=== PATIENT | female | born 1935 | race Caucasian/White ===

== ENCOUNTER 2023-01-07 20:27 | Inpatient (IN) | payer OTHER, MEDICAID ==
[~2023-01-07] VITALS: Ht 160 cm; Wt 59.0 kg
[2023-01-07 20:27] VITALS: BP 134/80; PULSE 68; RESP 17; TEMP 97.5; O2SAT 96
[2023-01-07 20:46] VITALS: O2SAT 99
[2023-01-07 21:42] LABS: BASOPHILS # (AUTO) 0.1 K/uL (0.00-0.22); EOSINOPHILS # (AUTO) 0.3 K/uL (0-0.4); EOSINOPHILS % (AUTO) 5.1 % (0.0-4.0); HEMATOCRIT 36.9 % (36-48); HEMOGLOBIN 12.3 g/dL (12.0-16.0); LYMPHOCYTES % (AUTO) 32.8 % (20.5-51.1); MEAN CORPUSCULAR HEMOGLOBIN 31 pg (27-31); MEAN CORPUSCULAR HGB CONC 34 g/dL (33-37); MEAN CORPUSCULAR VOLUME 93.2 fL (80-94); MONOCYTES # (AUTO) 0.9 K/uL (0.8-1.0); MONOCYTES % (AUTO) 14.2 % (1.7-9.3); NEUTROPHILS # (AUTO) 2.9 K/uL (1.8-7.7); NEUTROPHILS % (AUTO) 46.9 % (42.2-75.2); PLATELET COUNT (AUTO) 307 K/uL (140-450); RED BLOOD CELL COUNT(AUTO) 3.95 MIL/uL (4.20-5.40); RED CELL DISTRIBUTION WIDTH 14.8 % (11.6-13.7); WHITE BLOOD COUNT (AUTO) 6.2 K/uL (4.8-10.8)
[2023-01-07 21:58] LABS: ALANINE AMINOTRANSFERASE 7 U/L (12-78); ALBUMIN 2.7 g/dL (3.4-5.0); ALKALINE PHOSPHATASE 108 U/L (50-136); ANION GAP 9.6 (8-16); ASPARTATE AMINOTRANSFERASE 21 U/L (15-37); CARBON DIOXIDE 27.8 mmol/L (21-32); CHLORIDE 101 mmol/L (98-107); CREATININE 0.7 mg/dL (0.6-1.3); GLUCOSE 114 mg/dL (74-106); POTASSIUM 4.4 mmol/L (3.5-5.1); SODIUM SERUM 134 mmol/L (136-145); TOTAL BILIRUBIN 0.5 mg/dL (0.0-1.0); UREA NITROGEN, BLOOD 21 mg/dL (7-18)
[2023-01-07 22:03] LABS: LIPASE 39 U/L (16-77)
[2023-01-07 22:04] LABS: LACTIC ACID 0.8 mmol/L (0.4-2.0)
[2023-01-07] MEDS ORDERED: ASPIRIN 325 MG TAB PO ONE (22:50)
[2023-01-07 22:59] LABS: APPEARANCE,URINE CLEAR (CLEAR); BILIRUBIN,URINE NEGATIVE (NEGATIVE); BLOOD, URINE TRACE-I (NEGATIVE); COLOR,URINE YELLOW (YELLOW); LEUKOCYTE ESTERASE ,URINE 2+ (NEGATIVE); NITRITE, URINE NEGATIVE (NEGATIVE); PROTEIN,URINE NEGATIVE (NEGATIVE); UGLUCOSE NEGATIVE (NEGATIVE); UROBILINOGEN,URINE 0.2 EU/dL (0.2 - 1)
[2023-01-07 23:28] LABS: BACTERIA,URINE 1+ /HPF (None Seen); RBC,URINE 0-5 /HPF (0-5); SQUAMOUS EPITHELIAL CELL,UR 0-3 (FEW) /LPF (0-3 (FEW))
[2023-01-07] MEDS ORDERED: cefTRIAXone 1,000 MG VIAL ONE (23:29)
[2023-01-08] VITALS (17 sets, daily range): BP systolic 132–173; BP diastolic 60–99; PULSE 63–117; RESP 14–18; TEMP 96.9–97.9; O2SAT 90–100
[2023-01-08] MEDS: NACL 0.9% 1,000 ML IV SCH ×2 (01:10→19:50)
[2023-01-08] MEDS: hydrALAZINE 20 MG/ML VIAL IVP PRN (12:04)
[2023-01-08] MEDS: amLODIPine 5 MG TAB PO SCH (12:05)
[2023-01-09] VITALS (7 sets, daily range): BP systolic 112–153; BP diastolic 52–80; PULSE 68–112; RESP 18; TEMP 97–98.7; O2SAT 92–98
[2023-01-09 07:24] LABS: BASOPHILS # (AUTO) 0.1 K/uL (0.00-0.22); EOSINOPHILS # (AUTO) 0.2 K/uL (0-0.4); EOSINOPHILS % (AUTO) 2.7 % (0.0-4.0); HEMATOCRIT 37.1 % (36-48); HEMOGLOBIN 12.5 g/dL (12.0-16.0); LYMPHOCYTES # (AUTO) 1.8 K/uL (2.5-16.5); LYMPHOCYTES % (AUTO) 27.4 % (20.5-51.1); MEAN CORPUSCULAR HEMOGLOBIN 31 pg (27-31); MEAN CORPUSCULAR HGB CONC 34 g/dL (33-37); MEAN CORPUSCULAR VOLUME 93.3 fL (80-94); MONOCYTES # (AUTO) 0.8 K/uL (0.8-1.0); MONOCYTES % (AUTO) 11.9 % (1.7-9.3); NEUTROPHILS # (AUTO) 3.7 K/uL (1.8-7.7); PLATELET COUNT (AUTO) 306 K/uL (140-450); RED BLOOD CELL COUNT(AUTO) 3.98 MIL/uL (4.20-5.40); RED CELL DISTRIBUTION WIDTH 14.5 % (11.6-13.7); WHITE BLOOD COUNT (AUTO) 6.5 K/uL (4.8-10.8)
[2023-01-09 07:34] LABS: ALANINE AMINOTRANSFERASE 13 U/L (12-78); ALBUMIN 2.7 g/dL (3.4-5.0); ALKALINE PHOSPHATASE 103 U/L (50-136); ANION GAP 12.4 (8-16); ASPARTATE AMINOTRANSFERASE 18 U/L (15-37); CALCIUM 9.1 mg/dL (8.5-10.1); CARBON DIOXIDE 26.6 mmol/L (21-32); CHLORIDE 103 mmol/L (98-107); CREATININE 0.6 mg/dL (0.6-1.3); GLUCOSE 95 mg/dL (74-106); SODIUM SERUM 138 mmol/L (136-145); TOTAL BILIRUBIN 0.6 mg/dL (0.0-1.0); TOTAL PROTEIN, SERUM 7.7 g/dL (6.4-8.2); UREA NITROGEN, BLOOD 14 mg/dL (7-18)
[2023-01-09] MEDS: amLODIPine 5 MG TAB PO SCH (09:08)
[2023-01-09] MEDS ORDERED: ACETAMINOPHEN 650 MG/20.3 ML UDC PO PRN (14:45)
[2023-01-09] MEDS ORDERED: KETOROLAC 30 MG/ML VIAL IVP PRN (14:50)
[2023-01-09] MEDS: NACL 0.9% 1,000 ML IV SCH (17:28)
[2023-01-10] VITALS: BP 146/73; PULSE 109; PULSE 87; RESP 18; TEMP 98.5; O2SAT 97
[2023-01-10 04:00] VITALS: BP 129/60; PULSE 68; PULSE 96; RESP 18; TEMP 97.8; O2SAT 100
[2023-01-10 05:43] LABS: BASOPHILS # (AUTO) 0.1 K/uL (0.00-0.22); BASOPHILS % (AUTO) 0.6 % (0.0-2.0); EOSINOPHILS # (AUTO) 0.1 K/uL (0-0.4); EOSINOPHILS % (AUTO) 1.3 % (0.0-4.0); HEMATOCRIT 34.1 % (36-48); HEMOGLOBIN 11.3 g/dL (12.0-16.0); LYMPHOCYTES # (AUTO) 2.1 K/uL (2.5-16.5); LYMPHOCYTES % (AUTO) 22.8 % (20.5-51.1); MEAN CORPUSCULAR HEMOGLOBIN 31 pg (27-31); MEAN CORPUSCULAR HGB CONC 33 g/dL (33-37); MEAN CORPUSCULAR VOLUME 93.8 fL (80-94); MONOCYTES % (AUTO) 10.7 % (1.7-9.3); NEUTROPHILS # (AUTO) 6.1 K/uL (1.8-7.7); NEUTROPHILS % (AUTO) 64.6 % (42.2-75.2); PLATELET COUNT (AUTO) 288 K/uL (140-450); RED BLOOD CELL COUNT(AUTO) 3.63 MIL/uL (4.20-5.40); RED CELL DISTRIBUTION WIDTH 14.4 % (11.6-13.7); WHITE BLOOD COUNT (AUTO) 9.4 K/uL (4.8-10.8)
[2023-01-10 07:12] LABS: ALANINE AMINOTRANSFERASE 13 U/L (12-78); ALBUMIN 2.6 g/dL (3.4-5.0); ALKALINE PHOSPHATASE 93 U/L (50-136); ANION GAP 15.1 (8-16); ASPARTATE AMINOTRANSFERASE 19 U/L (15-37); CALCIUM 9.1 mg/dL (8.5-10.1); CARBON DIOXIDE 23.5 mmol/L (21-32); CHLORIDE 102 mmol/L (98-107); CREATININE 0.6 mg/dL (0.6-1.3); GLUCOSE 96 mg/dL (74-106); POTASSIUM 3.6 mmol/L (3.5-5.1); SODIUM SERUM 137 mmol/L (136-145); TOTAL BILIRUBIN 0.6 mg/dL (0.0-1.0); TOTAL PROTEIN, SERUM 7.5 g/dL (6.4-8.2); UREA NITROGEN, BLOOD 12 mg/dL (7-18)
[2023-01-10 08:00] VITALS: BP 112/61; PULSE 57; PULSE 69; PULSE 80; RESP 18; TEMP 97.4; O2SAT 95; O2SAT 99
[2023-01-10] MEDS: amLODIPine 5 MG TAB PO SCH (09:00)
[2023-01-10 12:00] VITALS: BP 146/55; PULSE 57; PULSE 69; RESP 18; TEMP 97.1; O2SAT 95
[2023-01-10] MEDS: NACL 0.9% 1,000 ML IV SCH (13:19)
[2023-01-10] MEDS: DEXT 5% / NACL 0.9% 1,000 ML IV SCH (14:10)
[2023-01-10 16:00] VITALS: BP 154/75; PULSE 56; PULSE 95; RESP 18; TEMP 98.2; O2SAT 98
[2023-01-10] MEDS ORDERED: CRUSHER, PILL MC ONE (17:18)
[2023-01-10] MEDS: BACLOFEN 10 MG TAB PO SCH (17:21)
[2023-01-10] MEDS: CARBIDOPA/LEVODOPA 25/100 MG 1 TAB PO SCH (17:21)
[2023-01-10 20:00] VITALS: BP 131/64; PULSE 69; RESP 18; TEMP 96.6; O2SAT 98
[2023-01-10] MEDS: ATORVASTATIN 20 MG TAB PO SCH (22:35)
[2023-01-10] MEDS: PROPRANOLOL 20 MG TAB PO SCH (22:35)
[2023-01-10] MEDS: GABAPENTIN 100 MG CAP PO SCH (22:36)
[2023-01-11] VITALS: BP 122/43; PULSE 64; PULSE 65; RESP 18; TEMP 96.9; O2SAT 96
[2023-01-11 04:00] VITALS: BP 160/63; PULSE 66; RESP 18; TEMP 96.4; O2SAT 96
[2023-01-11] MEDS: DEXT 5% / NACL 0.9% 1,000 ML IV SCH ×3 (06:00→21:54)
[2023-01-11 08:00] VITALS: BP 134/54; PULSE 42; PULSE 55; RESP 20; TEMP 97; O2SAT 100
[2023-01-11] MEDS: CARBIDOPA/LEVODOPA 25/100 MG 1 TAB PO SCH ×3 (09:06→17:00)
[2023-01-11] MEDS: BACLOFEN 10 MG TAB PO SCH ×3 (09:09→17:00)
[2023-01-11] MEDS: PROPRANOLOL 20 MG TAB PO SCH (09:09)
[2023-01-11 12:00] VITALS: BP 121/56; PULSE 36; PULSE 97; RESP 20; TEMP 98; O2SAT 100
[2023-01-11 16:00] VITALS: BP 151/56; PULSE 35; PULSE 64; RESP 20; TEMP 98; O2SAT 98
[2023-01-11 20:00] VITALS: BP 153/87; PULSE 66; PULSE 69; RESP 18; TEMP 36.5; O2SAT 97
[2023-01-11] MEDS: ATORVASTATIN 20 MG TAB PO SCH (21:05)
[2023-01-11] MEDS: GABAPENTIN 100 MG CAP PO SCH (21:06)
[2023-01-12] VITALS (10 sets, daily range): BP systolic 140–152; BP diastolic 54–86; PULSE 44–78; RESP 15–20; TEMP 96.6–97.4; O2SAT 95–100
[2023-01-12 06:07] LABS: BASOPHILS % (AUTO) 0.7 % (0.0-2.0); EOSINOPHILS # (AUTO) 0.3 K/uL (0-0.4); EOSINOPHILS % (AUTO) 4.8 % (0.0-4.0); HEMATOCRIT 35.4 % (36-48); HEMOGLOBIN 11.9 g/dL (12.0-16.0); LYMPHOCYTES # (AUTO) 1.9 K/uL (2.5-16.5); LYMPHOCYTES % (AUTO) 27.7 % (20.5-51.1); MEAN CORPUSCULAR HEMOGLOBIN 32 pg (27-31); MEAN CORPUSCULAR HGB CONC 34 g/dL (33-37); MEAN CORPUSCULAR VOLUME 94.1 fL (80-94); MONOCYTES # (AUTO) 0.9 K/uL (0.8-1.0); MONOCYTES % (AUTO) 13.8 % (1.7-9.3); NEUTROPHILS # (AUTO) 3.6 K/uL (1.8-7.7); PLATELET COUNT (AUTO) 267 K/uL (140-450); RED BLOOD CELL COUNT(AUTO) 3.76 MIL/uL (4.20-5.40); RED CELL DISTRIBUTION WIDTH 14.6 % (11.6-13.7); WHITE BLOOD COUNT (AUTO) 6.8 K/uL (4.8-10.8)
[2023-01-12 06:09] LABS: ANION GAP 8.6 (8-16); CALCIUM 8.8 mg/dL (8.5-10.1); CARBON DIOXIDE 28.6 mmol/L (21-32); CHLORIDE 106 mmol/L (98-107); CREATININE 0.5 mg/dL (0.6-1.3); GLUCOSE 128 mg/dL (74-106); POTASSIUM 3.2 mmol/L (3.5-5.1); SODIUM SERUM 140 mmol/L (136-145); UREA NITROGEN, BLOOD 4 mg/dL (7-18)
[2023-01-12] MEDS: CARBIDOPA/LEVODOPA 25/100 MG 1 TAB PO SCH ×3 (08:32→16:36)
[2023-01-12] MEDS: BACLOFEN 10 MG TAB PO SCH ×3 (08:32→16:36)
[2023-01-12] MEDS ORDERED: POTASSIUM CHLORIDE 10 MEQ TABER PO SCH (08:47)
[2023-01-12] MEDS ORDERED: POTASSIUM CHLORIDE 20% 40 MEQ/15 ML UDC PO SCH (09:04)
[2023-01-12] MEDS: DEXT 5% / NACL 0.9% 1,000 ML IV SCH (10:32)
[2023-01-12 17:05] LABS: FREE T4 (FREE THYROXINE) 1.52 ng/dL (0.76-1.46); THYROID STIMULATING HORMONE 2.52 uIU/mL (0.34-3.74)
[2023-01-12] MEDS: ATORVASTATIN 20 MG TAB PO SCH (22:00)
[2023-01-12] MEDS: GABAPENTIN 100 MG CAP PO SCH (22:00)
[2023-01-13] VITALS (8 sets, daily range): BP systolic 106–161; BP diastolic 40–88; PULSE 46–103; RESP 15–18; TEMP 97–97.6; O2SAT 92–100
[2023-01-13] MEDS: DEXT 5% / NACL 0.9% 1,000 ML IV SCH ×2 (01:30→18:30)
[2023-01-13 06:39] LABS: ANION GAP 12.2 (8-16); CALCIUM 8.8 mg/dL (8.5-10.1); CARBON DIOXIDE 24.9 mmol/L (21-32); CHLORIDE 106 mmol/L (98-107); CREATININE 0.5 mg/dL (0.6-1.3); GLUCOSE 125 mg/dL (74-106); POTASSIUM 3.1 mmol/L (3.5-5.1); SODIUM SERUM 140 mmol/L (136-145); UREA NITROGEN, BLOOD 3 mg/dL (7-18)
[2023-01-13] MEDS: CARBIDOPA/LEVODOPA 25/100 MG 1 TAB PO SCH ×3 (08:00→18:37)
[2023-01-13] MEDS: BACLOFEN 10 MG TAB PO SCH ×3 (08:40→18:37)
[2023-01-13] MEDS ORDERED: POTASSIUM CHLORIDE 10 MEQ TABER PO SCH (08:48)
[2023-01-13] MEDS ORDERED: POTASSIUM CHLORIDE 40 MEQ, LIDOCAINE 1% 25 MG in NACL 0.9% 250 ML IV SCH (11:00)
[2023-01-13] MEDS: hydrALAZINE 20 MG/ML VIAL IVP PRN (13:07)
[2023-01-13] MEDS ORDERED: ACETAMINOPHEN 650 MG/20.3 ML UDC NG PRN (18:38)
[2023-01-13] MEDS ORDERED: ATORVASTATIN 20 MG TAB NG SCH (18:39)
[2023-01-13] MEDS ORDERED: CRUSHER, PILL MC ONE (20:54)
[2023-01-13] MEDS: GABAPENTIN 100 MG CAP NG SCH (20:57)
[2023-01-14] VITALS (10 sets, daily range): BP systolic 98–148; BP diastolic 50–78; PULSE 43–131; RESP 16–20; TEMP 97.1–98.5; O2SAT 95–99
[2023-01-14 05:27] LABS: BASOPHILS % (AUTO) 0.8 % (0.0-2.0); EOSINOPHILS # (AUTO) 0.2 K/uL (0-0.4); EOSINOPHILS % (AUTO) 3.8 % (0.0-4.0); HEMATOCRIT 32.8 % (36-48); LYMPHOCYTES # (AUTO) 1.3 K/uL (2.5-16.5); LYMPHOCYTES % (AUTO) 22.3 % (20.5-51.1); MEAN CORPUSCULAR HEMOGLOBIN 32 pg (27-31); MEAN CORPUSCULAR HGB CONC 34 g/dL (33-37); MEAN CORPUSCULAR VOLUME 94.1 fL (80-94); MONOCYTES # (AUTO) 0.9 K/uL (0.8-1.0); MONOCYTES % (AUTO) 14.9 % (1.7-9.3); NEUTROPHILS # (AUTO) 3.4 K/uL (1.8-7.7); NEUTROPHILS % (AUTO) 58.2 % (42.2-75.2); PLATELET COUNT (AUTO) 270 K/uL (140-450); RED BLOOD CELL COUNT(AUTO) 3.49 MIL/uL (4.20-5.40); RED CELL DISTRIBUTION WIDTH 14.7 % (11.6-13.7); WHITE BLOOD COUNT (AUTO) 5.8 K/uL (4.8-10.8)
[2023-01-14] MEDS: DEXT 5% / NACL 0.9% 1,000 ML IV SCH ×2 (05:40→17:57)
[2023-01-14 06:36] LABS: ANION GAP 10.7 (8-16); CALCIUM 8.4 mg/dL (8.5-10.1); CARBON DIOXIDE 25.6 mmol/L (21-32); CHLORIDE 110 mmol/L (98-107); CREATININE 0.6 mg/dL (0.6-1.3); GLUCOSE 125 mg/dL (74-106); POTASSIUM 4.3 mmol/L (3.5-5.1); SODIUM SERUM 142 mmol/L (136-145); UREA NITROGEN, BLOOD 5 mg/dL (7-18)
[2023-01-14] MEDS: BACLOFEN 10 MG TAB NG SCH ×3 (09:55→17:34)
[2023-01-14] MEDS: CARBIDOPA/LEVODOPA 25/100 MG 1 TAB NG SCH ×3 (09:55→17:34)
[2023-01-14] MEDS ORDERED: LORazepam 2 MG/ML VIAL IM/IVP PRN (17:05)
[2023-01-14] MEDS: GABAPENTIN 100 MG CAP NG SCH (21:13)
[2023-01-15] VITALS (7 sets, daily range): BP systolic 145–171; BP diastolic 55–64; PULSE 67–100; RESP 15–19; TEMP 97–98.2; O2SAT 94–97
[2023-01-15] MEDS: DEXT 5% / NACL 0.9% 1,000 ML IV SCH ×2 (06:56→18:07)
[2023-01-15 07:13] LABS: BASOPHILS % (AUTO) 0.6 % (0.0-2.0); EOSINOPHILS # (AUTO) 0.2 K/uL (0-0.4); EOSINOPHILS % (AUTO) 3.7 % (0.0-4.0); HEMATOCRIT 35.7 % (36-48); HEMOGLOBIN 11.7 g/dL (12.0-16.0); LYMPHOCYTES # (AUTO) 1.6 K/uL (2.5-16.5); LYMPHOCYTES % (AUTO) 25.3 % (20.5-51.1); MEAN CORPUSCULAR HEMOGLOBIN 31 pg (27-31); MEAN CORPUSCULAR HGB CONC 33 g/dL (33-37); MONOCYTES # (AUTO) 1.2 K/uL (0.8-1.0); MONOCYTES % (AUTO) 18.8 % (1.7-9.3); NEUTROPHILS # (AUTO) 3.3 K/uL (1.8-7.7); NEUTROPHILS % (AUTO) 51.6 % (42.2-75.2); PLATELET COUNT (AUTO) 249 K/uL (140-450); RED BLOOD CELL COUNT(AUTO) 3.76 MIL/uL (4.20-5.40); WHITE BLOOD COUNT (AUTO) 6.4 K/uL (4.8-10.8)
[2023-01-15 07:21] LABS: ANION GAP 9.7 (8-16); CALCIUM 8.6 mg/dL (8.5-10.1); CARBON DIOXIDE 22.5 mmol/L (21-32); CHLORIDE 109 mmol/L (98-107); CREATININE 0.6 mg/dL (0.6-1.3); GLUCOSE 137 mg/dL (74-106); POTASSIUM 4.2 mmol/L (3.5-5.1); SODIUM SERUM 137 mmol/L (136-145); UREA NITROGEN, BLOOD 8 mg/dL (7-18)
[2023-01-15] MEDS: ECOTRIN 81 MG TABEC PO SCH (09:09)
[2023-01-15] MEDS: CARBIDOPA/LEVODOPA 25/100 MG 1 TAB NG SCH ×3 (09:10→18:07)
[2023-01-15] MEDS: ATORVASTATIN 20 MG TAB PO SCH (09:10)
[2023-01-15] MEDS: BACLOFEN 10 MG TAB NG SCH ×3 (09:10→18:07)
[2023-01-15] MEDS: LOSARTAN 25 MG TAB PO SCH (09:11)
[2023-01-15] MEDS: GABAPENTIN 100 MG CAP NG SCH (20:16)
[2023-01-16] MEDS: DEXT 5% / NACL 0.9% 1,000 ML IV SCH ×2 (06:42→20:10)
[2023-01-16 08:00] VITALS: BP 163/69; PULSE 56; PULSE 86; RESP 18; TEMP 98.2; O2SAT 94; O2SAT 98
[2023-01-16] MEDS: BACLOFEN 10 MG TAB NG SCH ×3 (09:01→17:53)
[2023-01-16] MEDS: CARBIDOPA/LEVODOPA 25/100 MG 1 TAB NG SCH ×3 (09:01→17:53)
[2023-01-16] MEDS: ECOTRIN 81 MG TABEC PO SCH (09:01)
[2023-01-16] MEDS: ATORVASTATIN 20 MG TAB PO SCH (09:01)
[2023-01-16] MEDS: LOSARTAN 25 MG TAB PO SCH (09:01)
[2023-01-16] MEDS: DOCUSATE 100 MG/10 ML UDC NG SCH ×2 (14:23→22:12)
[2023-01-16 16:00] VITALS: BP 153/69; PULSE 80; RESP 18; TEMP 97.3; O2SAT 97
[2023-01-16 20:00] VITALS: BP 154/77; PULSE 75; RESP 16; TEMP 97.6; O2SAT 98
[2023-01-16] MEDS: GABAPENTIN 100 MG CAP NG SCH (22:13)
[2023-01-17 08:00] VITALS: BP 163/56; PULSE 73; RESP 18; TEMP 97.2; O2SAT 98
[2023-01-17] MEDS: ATORVASTATIN 20 MG TAB PO SCH (08:43)
[2023-01-17] MEDS: ECOTRIN 81 MG TABEC PO SCH (08:43)
[2023-01-17] MEDS: LOSARTAN 25 MG TAB PO SCH (08:43)
[2023-01-17] MEDS: DOCUSATE 100 MG/10 ML UDC NG SCH (08:44)
[2023-01-17] MEDS: CARBIDOPA/LEVODOPA 25/100 MG 1 TAB NG SCH ×3 (08:44→18:12)
[2023-01-17] MEDS: BACLOFEN 10 MG TAB NG SCH ×3 (08:44→18:11)
[2023-01-17] MEDS: DEXT 5% / NACL 0.9% 1,000 ML IV SCH (08:49)
[2023-01-17] MEDS ORDERED: ATOR40TA PO (10:45)
[2023-01-17] MEDS ORDERED: losartan (10:46)
[2023-01-17 16:00] VITALS: BP 150/62; PULSE 73; RESP 18; TEMP 98.1; O2SAT 99
[2023-01-17] MEDS ORDERED: LOSARTAN 25 MG TAB PO SCH (21:00)
== END 2023-01-17 19:00 | DRG 689 ==
LOC: MED 20:27 → MMU 23:22 → MTU 01-08 00:58
PROVIDERS: ADMIT Student in an Organized Health Care Education/Training Program; ATTEND Student in an Organized Health Care Education/Training Program
DX: N39.0 Urinary tract infection, site not specified (principal); G93.41 Metabolic encephalopathy; J96.01 Acute respiratory failure with hypoxia; E87.1 Hypo-osmolality and hyponatremia; E44.0 Moderate protein-calorie malnutrition; I69.354 Hemiplegia and hemiparesis following cerebral infarction affecting left non-dominant side; I50.32 Chronic diastolic (congestive) heart failure; I25.10 Atherosclerotic heart disease of native coronary artery without angina pectoris; R13.10 Dysphagia, unspecified; R00.1 Bradycardia, unspecified; I11.0 Hypertensive heart disease with heart failure; G20.A1 Parkinson's disease without dyskinesia, without mention of fluctuations; Z88.5 Allergy status to narcotic agent; Z79.899 Other long term (current) drug therapy; Z68.23 Body mass index [BMI] 23.0-23.9, adult
CPT/HCPCS: 36415; 71045; 80048; 80053; 81001; 82948; 83605; 83690; 83880; 84439; 84443; 84484; 85025; 87040; 87077; 87081; 87086; 92526; 93005; 96365; 97112; 97163-GP; 97530; 99285; J0360; J0696; J1885; J2001; J2060; J3480; J7030; J7060